=== PATIENT | male | born 1935 | race Caucasian/White ===

== ENCOUNTER 2021-10-03 10:48 | Emergency (ER) | payer MEDICARE ==
[~2021-10-03] VITALS: Ht 175.3 cm; Wt 79.0 kg
[~2021-10-03 10:48] MED LIST: CEPHALEXIN500 MG PO; DESONIDE0.05 % EX; FLOMAX0.4 M1 PO; PREVACID30 M1; PROSCAR5 MG PO; VIAGRA50 MG PO; VITAMIN D1000 UNI1 OR; ZOCOR PO
[2021-10-03 10:53] VITALS: BP 144/70
== END 2021-10-03 11:30 | disposition home or self-care (01) ==
LOC: ED 10:48
PROC: 09C47ZZ Extirpation of Matter from Left External Auditory Canal, Via Natural or Artificial Opening (ICD-10-PCS; principal; 2021-10-03)
DX: T16.2XXA Foreign body in left ear, initial encounter (principal); G20 Parkinson's disease; N40.0 Benign prostatic hyperplasia without lower urinary tract symptoms; X58.XXXA Exposure to other specified factors, initial encounter

== ENCOUNTER 2021-10-26 05:26 | Emergency (ER) | payer MEDICARE ==
[~2021-10-26] VITALS: Ht 175.3 cm; Wt 78.0 kg
[2021-10-26 06:19] LABS: URINE BILIRUBIN - DIPSTICK NEGATIVE (NEGATIVE); URINE BLOOD DIPSTICK NEGATIVE (NEGATIVE); URINE COLOR YELLOW; URINE GLUCOSE - DIPSTICK NEGATIVE (NEGATIVE); URINE KETONE NEGATIVE (NEGATIVE); URINE LEUK ESTERASE NEGATIVE (NEGATIVE); URINE PROTEIN - DIPSTICK NEGATIVE (NEG-TRACE); URINE SPECIFIC GRAVITY <=1.005; URINE UROBILINOGEN - DIPSTICK 0.2 E.U./dL (0.2)
[2021-10-26 06:19] LABS: HEMATOCRIT 44.2 % (39.0-50.0); HEMOGLOBIN 14.2 g/dl (14.0-18.0); IMMATURE GRANULOCYTES 0.2 % (0.0-5.0); MEAN CELL VOLUME 95.3 fL CALC (80.0-100.0); MEAN CORPUSCULAR HGB 30.6 pG CALC (26.0-32.0); MEAN CORPUSCULAR HGB CONC 32.1 g/dL CAL (32.0-36.0); NEUT# 3.15 thou/uL (1.82-7.42); RED BLOOD COUNT 4.64 mill/uL (4.70-6.10); RED CELL DISTRI WIDTH 13.5 % (11.5-15.5)
[2021-10-26 06:21] LABS: URINE NITRITE - DIPSTICK NEGATIVE (Negative)
[2021-10-26] MEDS ORDERED: SINEMET 25/1001 TAB PO (06:21)
[2021-10-26] MEDS ORDERED: OMEPRAZOLE DR20 M1 PO (06:22)
[2021-10-26] MEDS ORDERED: AMANTADINE100 MG PO (06:23)
[2021-10-26] MEDS ORDERED: FINASTERIDE5 MG PO (06:23)
[2021-10-26] MEDS ORDERED: MULTI VIT PO (06:25)
[2021-10-26] MEDS ORDERED: MELATONIN3 MG PO (06:26)
[2021-10-26 06:33] LABS: ALBUMIN 3.9 g/dL (3.2-5.0); ALKALINE PHOSPHATASE 85 u/l (38-126); ANION GAP 8 (6-22 (CALC)); BILIRUBIN, TOTAL 0.8 mg/dL (0.0-1.4); BUN 13 mg/dL (8-23); BUN/CREATININE RATIO 17 (12-20 (CALC)); CARBON DIOXIDE 32 mmol/l (22-30); CHLORIDE 105 mmol/l (95-108); CREATININE 0.8 mg/dL (0.7-1.3); GFR > 60 ML/MIN (>=60 (CALC)); GFR FOR AFR.AMER. > 60 ML/MIN (>=60 (CALC)); POTASSIUM 3.9 mmol/l (3.5-5.1); SGOT/AST 30 u/l (19-48); SODIUM 140 mmol/l (137-146); TOTAL PROTEIN 7.1 g/dL (6.3-8.2)
[2021-10-26 06:45] LABS: MYOGLOBIN 53 ng/mL (0 - 121)
[2021-10-26 08:37] VITALS: BP 164/77
== END 2021-10-26 09:00 | disposition home or self-care (01) ==
LOC: ED 05:26
PROVIDERS: Emergency Medicine
PROC: 0HQEXZZ Repair Left Lower Arm Skin, External Approach (ICD-10-PCS; principal; 2021-10-26)
DX: S00.03XA Contusion of scalp, initial encounter (principal); S51.812A Laceration without foreign body of left forearm, initial encounter; G20 Parkinson's disease; N40.0 Benign prostatic hyperplasia without lower urinary tract symptoms; W01.0XXA Fall on same level from slipping, tripping and stumbling without subsequent striking against object, initial encounter; Y92.009 Unspecified place in unspecified non-institutional (private) residence as the place of occurrence of the external cause